=== PATIENT | male | born 1995 | race Hispanic/Latino ===

== ENCOUNTER 2023-01-26 11:12 | Emergency (ER) | payer SELFPAY ==
[2023-01-26 14:43] LABS: #Basophils 0.1 10x3/uL (0.0-0.2); #Eosinphils 0.2 10x3/uL (0.0-0.5); #Monocytes 0.9 10x3/uL (0.0-1.1); #Neutrophils 12.5 10x3/uL (1.5-8.4); %Basophils 0.3 % (0.0-2.0); %Eosinophils 1.5 % (0.0-6.0); %Lymphocytes 10.2 % (18.0-47.0); %Monocytes 6.1 % (0.0-10.0); %Neutrophils 81.6 % (40.0-75.0); Hemoglobin 12.8 g/dL (13.5-17.5); Mean Corpuscular Hemoglobin 29.8 pg (27.0-33.0); Mean Corpuscular Volume 87.6 fl (81.2-95.1); Mean Platelet Volume 9.1 fl (7.4-10.4); Platelet Count 417 10x3/uL (150-450); RBC Distribution Width 13.2 % (11.5-14.5); Red Blood Cell (RBC) Count 4.29 10x6/uL (4.32-5.72); White Blood Cell (WBC) Count 15.3 10x3/uL (3.5-10.5)
[2023-01-26 15:06] LABS: ALT (SGPT) 131 U/L (8-55); AST (SGOT) 92 U/L (5-34); Albumin 4.2 g/dL (3.5-5.0); Alkaline Phosphatase 147 U/L (40-110); Anion Gap 15 mmol/L (10-20); BUN (Urea Nitrogen) 11 mg/dL (8.9-20.6); Bilirubin, Total 0.4 mg/dL (0.2-1.2); CRP (Inflammatory) 4.22 mg/dL (= or < 0.5); Calc. Creatinine Clearance 0 mL/min (70-130); Calcium 9.6 mg/dL (7.8-10.44); Carbon Dioxide 24 mmol/L (22-29); Chloride 102 mmol/L (98-107); Estimated GFR 121; Globulin 3.3 g/dL (2.4-3.5); Glucose 127 mg/dL (70-105); Protein, Total 7.5 g/dL (6.0-8.3); Sodium 137 mmol/L (136-145)
[2023-01-26] MEDS ORDERED: cefTRIAXone (ROCEPHIN) 2 GM VIAL ONE (15:52)
[2023-01-27 00:55] LABS: Chlam.trachomatis by PCR,Urine Not Detected (NotDetected); GC N.gonorrhoeae PCR,UrineVOID Not Detected (NotDetected)
[2023-01-30 05:12] LABS: HSV 1 - DNA Negative (Negative); HSV 2 - DNA Negative (Negative)
== END 2023-01-26 16:56 | disposition home or self-care (01) ==
LOC: CSHERS 11:12
DX: L97.529 Non-pressure chronic ulcer of other part of left foot with unspecified severity (principal); L97.519 Non-pressure chronic ulcer of other part of right foot with unspecified severity; M25.9 Joint disorder, unspecified; D72.829 Elevated white blood cell count, unspecified
CPT/HCPCS: 36415; 80053; 83605; 85025; 86140; 87040; 87070; 87077; 87081; 87186; 87205; 87430; 87491; 87529; 87591; 96374; J0696